=== PATIENT | female | born 1995 | race Caucasian/White ===

== ENCOUNTER 2017-08-02 16:49 | Inpatient (IN) ==
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
[2017-08-02 17:53] LABS: Basophils % 0.5 %; Eosinophils # 0.2 K/mcL (0.0-0.6); Eosinophils % 2.3 %; Hematocrit 43.5 % (35.3-44.9); Hemoglobin 14.9 g/dL (11.5-15.4); Immature Granulocytes % 0.1 % (0-4); Lymphocytes # 3.7 K/mcL (0.6-4.6); Lymphocytes % 46.7 %; Mean Corpuscular HGB Conc 34.3 g/dL (31.6-35.5); Mean Corpuscular Hemoglobin 30.4 pg (28.0-33.3); Mean Corpuscular Volume 88.8 fL (83.0-100.0); Mean Platelet Volume 10.3 fL (9.4-12.4); Monocytes # 0.6 K/mcL (0.0-1.3); Monocytes % 7.6 %; Neutrophils # 3.4 K/mcL (1.6-8.9); Platelet Count 230 K/mcL (140-400); Red Cell Distribution Width 12.7 % (11.5-14.5); Segmented Neutrophils % 42.8 %
[2017-08-02 18:07] LABS: Acetaminophen < 1.0 mcg/mL (10-30); BUN/Creatinine Ratio 13 (6-26); Blood Urea Nitrogen 10 mg/dL (7-20); Calcium 9.1 mg/dL (8.6-10.8); Carbon Dioxide 20 mEq/L (19-29); Chloride 112 mEq/L (98-109); Ethanol < 10 mg/dL (0-10); Glucose 85 mg/dL (70-99); Osmolality,Calculated 290 (280-300); Potassium 3.9 mEq/L (3.5-4.5); Salicylate < 5.0 mg/dL (15-30); Sodium 141 mEq/L (136-145); eGFR For African Americans > 60 (> 60); eGFR For Non-African Americans > 60 (> 60)
[2017-08-02 18:23] LABS: Bilirubin,Urine Negative (Negative); Blood,Urine Negative (Negative); Clarity,Urine Turbid (Clear); Color,Urine Yellow (Yellow); Glucose,Urine (UA) Normal (Normal); Ketones,Urine Negative (Negative); Leukocyte Esterase,Urine Negative (Negative); Nitrite,Urine Negative (Negative); PH,Urine 7.5 pH Units (5.0-8.0); Protein,Urine Negative (Neg-Trace); Specific Gravity,Urine 1.022 (1.010-1.025); Urobilinogen,Urine Normal (Normal)
[2017-08-02 18:25] LABS: Hyaline Casts,Urine None Seen per lpf (None-Few); Squamous Epithelial Cell,Urine Many per lpf (None-Few); WBC,Urine 0-3 per hpf (0-3)
[2017-08-02 18:29] LABS: Amphetamine Screen,Urine Negative ng/mL (Cutoff=1000); Barbiturate Screen,Urine Negative ng/mL (Cutoff=200); Benzodiazepines Screen,Urine Negative ng/mL (Cutoff=200); Cannabinoid Screen,Urine Positive ng/mL (Cutoff = 50); Cocaine Screen,Urine Negative ng/mL (Cutoff= 300); Opiate Screen,Urine Negative ng/mL (Cutoff=300); Phencyclidine Screen,Urine Negative ng/mL (Cutoff=25)
[2017-08-02 18:39] LABS: Amorphous Sediment,Urine Many (Few); RBC,Urine 0-3 per hpf (0-3)
[2017-08-02 18:40] LABS: Bacteria,Urine Few per hpf (None-Few)
[2017-08-02] MEDS ORDERED: *HR* LORazepam 2 MG/ML VIAL IM PRN ×2 (20:06→22:05)
[2017-08-02] MEDS ORDERED: hydrOXYzine pamoate 25 MG CAPSULE PO PRN ×2 (20:06→22:05)
[2017-08-02] MEDS ORDERED: MOM Conc 10 ML UD.LIQ PO PRN ×2 (20:06→22:05)
[2017-08-02] MEDS ORDERED: traZODone 50 MG TABLET PO PRN (20:06)
[2017-08-02] MEDS ORDERED: Mag Hydrox/Al Hydrox/Simeth 30 ML UDC PO PRN ×2 (20:06→22:05)
[2017-08-02] MEDS ORDERED: Acetaminophen 325 MG TABLET PO PRN ×2 (20:06→22:05)
[2017-08-02] MEDS ORDERED: *HR* LORazepam 1 MG TABLET PO PRN ×2 (20:06→22:05)
[2017-08-02] MEDS ORDERED: Haloperidol Lactate 5 MG/ML VIAL IM PRN ×2 (20:06→22:05)
[2017-08-02] MEDS: traZODone 50 MG TABLET PO PRN (22:26)
[2017-08-03] MEDS: Nicotine 2 MG GUM BC PRN ×4 (09:40→20:22)
[2017-08-03] MEDS ORDERED: hydrOXYzine pamoate 25 MG CAPSULE PO PRN (15:51)
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
[2017-08-03] MEDS: traZODone 50 MG TABLET PO PRN (20:22)
[2017-08-04] MEDS: Nicotine 2 MG GUM BC PRN (08:38)
[2017-08-04] MEDS ORDERED: Venlafaxine XR (24 HR) 75 MG CAP.ER.24H PO SCH (09:00)
[2017-08-04 09:32] VITALS: BP 125/70
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
== END 2017-08-04 12:46 | disposition home or self-care (01) | DRG 882 ==
LOC: EMEROO 16:49 → 1ANU 19:59 → UNDODISIN 20:22
PROVIDERS: ADMIT Psychiatry & Neurology Psychiatry; ATTEND Psychiatry & Neurology Psychiatry